=== PATIENT | male | born 1930 | race Caucasian/White ===

== ENCOUNTER 2017-01-31 15:18 | Emergency (ER) | payer MEDICARE, OTHER ==
[2017-01-31 15:18] VITALS: BMI 26.2
[2017-01-31 15:27] VITALS: RESP 20; TEMP 98
--- NOTE | 2017-01-31 16:11 | ED PDOC ---
Hyperglycemia/Hypoglycemia Time Seen by Provider: 01/31/17 15:35 Chief Complaint (Nursing): Back Pain Chief Complaint (Provider): Weakness History Per: Patient History/Exam Limitations: no limitations Onset/Duration Of Symptoms: Days (ongoing since yesterday), Worse Since (onset) Current Symptoms Are (Timing): Still Present Severity: Moderate Current Diabetic Medications: Insulin Causative (Exacerbating) Factor(s): Other (exertion exacerbates weakness; possible causative factors are inclusive of hyperglycemia, dehydration, electrolyte abnormality, hypothyroidism, or congestive heart failure) Associated Infectious Symptoms: Nausea, Other (lightheadedness, abdominal discomfort, "aching" neck pain; denies abdominal pain, chest pain, shortness of breath) : The patient does not have any of the infectious symptoms listed except for those marked. Treatment Prior To Provider Evaluation: Accucheck (elevated sugar over the last 3 days) Additional Complaint(s): Christiano Freeman is a 86 year old male, with a past medical history of type 2 diabetes mellitus, hypertension, and hypercholesterolemia, who presents to the emergency department for the evaluation of generalized weakness, that the patient has been experiencing since yesterday, which has been worsening ever since initial onset. Patient's sugar has been elevated above 300 over the last 3 days. Patient denies any recent change in his medications or regular activity ; however, exertion reportedly exacerbates his feeling of weakness. Associated nausea, lightheadedness, abdominal discomfort, an "aching" neck pain, and excessive feelings of thirst and hunger are currently present. Denies abdominal pain, chest pain, shortness of breath, or any other infectious symptoms. PMD: Zena Erickson Past Medical History Reviewed: Historical Data, Nursing Documentation, Vital Signs Vital Signs: Last Vital Signs Temp 98 F 01/31/17 15:20 Pulse 112 H 01/31/17 15:20 Resp 20 01/31/17 15:20 BP 140/84 01/31/17 15:20 Pulse Ox 100 01/31/17 15:20 - Medical History PMH: Arthritis, CVA, Diabetes (type 2), GERD, HTN, Hypercholesterolemia Denies: HIV, Chronic Kidney Disease - Family History Family History: States: No Known Family Hx - Home Medications Home Medications: Ambulatory Orders Medication Instructions Recorded Insulin Glargine,Hum.rec.anlog 35 unit [facility] 09/23/14 [Lantus] Zolpidem Tartrate [Ambien] 5 mg PO HS 09/23/14 Esomeprazole Magnesium [Nexium] 40 mg PO DAILY PRN 03/16/15 Lisinopril/Hydrochlorothiazide 1 tab PO DAILY 03/16/15 [Lisinopril-Hctz 20-25 mg Tab] Tamsulosin [Flomax] 0.4 mg PO HS 03/16/15 Aspirin/Sod Bicarb/Citric Acid 1 tab PO DAILY PRN 11/09/15 [Caitlin-Leon Original Tab Eff] Docusate [Colace] 100 mg PO BID PRN 11/09/15 Fluticasone Nasal [Flonase] 2 spray VINNIE DAILY PRN 11/09/15 Glimepiride [amaRYL] 4 mg PO BID 11/09/15 Insulin Lispro [Humalog] 6 unit SC WM 11/09/15 Meclizine [Antivert] 12.5 mg PO TID PRN 11/09/15 Oxycodone HCl/Acetaminophen 1 tab PO Q6H PRN 11/09/15 [Percocet 5-325 mg Tablet] Promethazine HCl/Codeine 5 ml PO BID PRN 11/09/15 [Prometh-Codein 6.25-10 mg/5 ml] Simvastatin [Zocor] 20 mg PO HS 11/09/15 Sitagliptin Phos/Metformin HCl 1 tab PO BID 11/09/15 [Janumet 50-1,000 mg Tablet] - Allergies Allergies/Adverse Reactions: Allergies Allergy/AdvReac Type Severity Reaction Status Date / Time No Known Allergies Allergy Verified 04/03/15 16:26 Review of Systems ROS Statement: Except As Marked, All Systems Reviewed And Found Negative Cardiovascular: Negative for: Chest Pain Respiratory: Negative for: Shortness of Breath Gastrointestinal: Positive for: Nausea, Other (excessive thirst and hunger). Negative for: Abdominal Pain (positive abdominal discomfort) Musculoskeletal: Positive for: Neck Pain ("aching") Neurological: Positive for: Weakness (generalized), Other (lightheadedness) Physical Exam - Reviewed Nursing Documentation Reviewed: Yes Vital Signs Reviewed: Yes - Physical Exam Appears: Positive for: Well, Non-toxic, No Acute Distress Head Exam: Positive for: ATRAUMATIC, NORMAL INSPECTION, NORMOCEPHALIC Skin: Positive for: Warm, Dry, Pallor Eye Exam: Positive for: EOMI, Normal appearance, PERRL ENT: Positive for: Normal ENT Inspection, Pharynx Is (clear), Other (dry mucous membranes). Negative for: Pharyngeal Erythema, Tonsillar Exudate, Tonsillar Swelling Neck: Positive for: Normal, Painless ROM, Supple Cardiovascular/Chest: Positive for: Regular Rate, Rhythm. Negative for: Murmur Respiratory: Positive for: Normal Breath Sounds. Negative for: Wheezing, Respiratory Distress Gastrointestinal/Abdominal: Positive for: Normal Exam, Bowel Sounds (normal), Soft. Negative for: Tenderness, Guarding, Rebound Back: Positive for: Normal Inspection. Negative for: L CVA Tenderness, R CVA Tenderness Extremity: Positive for: Normal ROM. Negative for: Tenderness, Swelling Lymphatic: Negative for: Adenopathy Neurologic/Psych: Positive for: Alert, Oriented. Negative for: Motor/Sensory Deficits - Laboratory Results Result Diagrams: 01/31/17 17:00 01/31/17 17:00 - ECG O2 Sat by Pulse Oximetry: 100 (RA) Pulse Ox Interpretation: Normal Medical Decision Making Medical Decision Makin:35 Initial Impression: Weakness Differential Diagnoses include, but are not limited to, hyperglycemia, dehydration, electrolyte abnormality, hypothyroidism, and congestive heart failure. Initial Plan: * Electrocardiogram * Venous Blood Gas Shock Panel * Complete Blood Count * Comprehensive Metabolic Panel * Prothrombin Time * Partial Thromboplastin Time * B-Type Natriuretic Peptide * Troponin I * Thyroid Stimulating Hormone * Magnesium * Phosphorous * Glucose, Blood, POC * Reevaluation Labs demonstrate hyperglcyemia, otherwise no clinically significant lab abnormalities Scribe Attestation: Documented by Sanjeev Crum, acting as a scribe for Lita Arriaza MD. Provider Scribe Attestation: All medical record entries made by the Scribe were at my direction and personally dictated by me. I have reviewed the chart and agree that the record accurately reflects my personal performance of the history, physical exam, medical decision making, and the department course for this patient. I have also personally directed, reviewed, and agree with the discharge instructions and disposition. Disposition - Clinical Impression Clinical Impression: Hyperglycemia Counseled Patient/Family Regarding: Studies Performed, Diagnosis, Need For Followup - Disposition Referrals: Zena Erickson [Staff Provider] - 02/03/17 Disposition: Routine/Home Disposition Time: 18:00 Condition: IMPROVED Instructions: Diabetic Hyperglycemia (ED) Print Language: [place]
[2017-01-31 17:12] LABS: BASO # 0.1 K/uL (0.0-0.2); BASO % 1.1 % (0.0-2.0); EOS # 0.1 K/uL (0.0-0.7); EOS % 1.8 % (0.0-4.0); HEMATOCRIT 39.4 % (35.0-51.0); LYMPH # 1.6 K/uL (1.0-4.3); LYMPH % 23.6 % (20.0-40.0); MEAN CORPUSCULAR HEMOGLOBIN 29.6 pg (27.0-31.0); MEAN CORPUSCULAR HGB CONC 32.9 g/dL (33.0-37.0); MEAN PLATELET VOLUME 8.7 fl (7.2-11.7); MONO # 0.4 K/uL (0.0-0.8); MONO % 6.3 % (0.0-10.0); NEUT # 4.7 K/uL (1.8-7.0); NEUT % 67.2 % (50.0-75.0); RED CELL DISTRIBUTION WIDTH 13.7 % (11.5-14.5); WHITE BLOOD COUNT 6.9 K/uL (4.8-10.8)
[2017-01-31 17:24] LABS: ALB/GLOB RATIO 1.4 (1.0-2.1); ALKALINE PHOSPHATASE 73 U/L (38-126); ALT/SGPT 23 U/L (21-72); AST/SGOT 20 U/L (17-59); BILIRUBIN,TOTAL 0.3 mg/dl (0.2-1.3); BLOOD UREA NITROGEN 24 mg/dl (9-20); CALCIUM 9.6 mg/dL (8.4-10.2); CARBON DIOXIDE 26 mmol/L (22-30); CHLORIDE 95 mmol/L (98-107); GFR AFRICAN-AMERICAN > 60; GLUCOSE,RANDOM 362 mg/dL (75-110); MAGNESIUM 1.9 MG/DL (1.6-2.3); PHOSPHOROUS 4.1 mg/dl (2.5-4.5); POTASSIUM 4.9 MMOL/L (3.6-5.0); SODIUM 132 mmol/l (132-148); TOTAL PROTEIN 6.6 G/DL (6.3-8.2)
[2017-01-31] MEDS ORDERED: Sodium Chloride 0.9% 500 ML IV STA (17:46)
[2017-01-31] MEDS ORDERED: Insulin Regular 100 units/ml SC STA (18:23)
[2017-01-31 19:45] VITALS: BP 125/46; PULSE 77
--- NOTE | 2017-02-01 12:47 | CARD ---
APPROVED REPORT EKG Measurement Heart [id number] <Conclusion> Normal sinus rhythm Incomplete right bundle branch block T wave abnormality, consider anterior ischemia Abnormal ECG
[2017-02-02 17:48] VITALS: O2SAT 100
== END 2017-01-31 19:52 | disposition home or self-care (01) ==
LOC: H.ER 15:18
DX: E11.65 Type 2 diabetes mellitus with hyperglycemia (principal); R53.1 Weakness; R11.0 Nausea; E78.00 Pure hypercholesterolemia, unspecified; I10 Essential (primary) hypertension; I45.10 Unspecified right bundle-branch block; K21.9 Gastro-esophageal reflux disease without esophagitis; Z79.4 Long term (current) use of insulin; Z79.82 Long term (current) use of aspirin; Z86.73 Personal history of transient ischemic attack (TIA), and cerebral infarction without residual deficits
CPT/HCPCS: 80053; 82948; 83735; 83880; 84100; 84443; 84484; 85025; 85610; 85730; 93005; 96372; 99282; J7040